=== PATIENT | male | born 1980 | race Caucasian/White ===

== ENCOUNTER 2021-02-21 19:23 | Emergency (ER) | payer BC ==
[~2021-02-21] VITALS: Ht 175.2 cm; Wt 94.4 kg
[2021-02-21] MEDS ORDERED: LIDOCAINE 1% INJ 20 ML 20 ML VIAL INJ STA (19:38)
--- NOTE | 2021-02-21 20:03 | ED Upper Extremity ---
General Chief Complaint: Laceration Stated Complaint: RT INDEX FINGER LAC Nursing Triage Note: Pt ambulatory into ER with complaint of laceration to right hand. 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 Source: patient History of Present Illness Date Seen by Provider: Feb 21, 2021 Time Seen by Provider: 19:29 Initial Comments 40-year-old male presenting with laceration to his right index finger. 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 Discussed the minute break and he got a laceration. He denies any numbness or tingling to the finger. He has normal range of motion. He is right-hand dominant. His last tetanus was 5 to 6 years ago. He denies any other pain or injuries. Onset: just prior to arrival Severity: mild Pain/Injury Location: right 2nd finger Method of Injury: direct blow (punched rear view mirror of truck) Modifying Factors: Worse With Movement Allergies and Home Medications Allergies Coded Allergies: No Known Drug Allergies (Unverified , 02/21/21) Patient Home Medication List Home Medication List Reviewed: Yes Amoxicillin/Potassium Clav (Amox Tr-K Clv 875-125 mg Tab) 1 Each Tablet, 1 EACH PO BID Prescribed by: ALFONSO TURNER on 02/21/212048 Review of Systems Constitutional: No chills, No fever EENTM: no symptoms reported Respiratory: no symptoms reported Cardiovascular: no symptoms reported Gastrointestinal: no symptoms reported Genitourinary: no symptoms reported Musculoskeletal: see HPI Skin: see HPI Psychiatric/Neurological: Denies Numbness, Denies Paresthesia Past Mpeitqm-Tmuimh-Asqimy Hx Patient Social History Tobacco Use?: No Use of E-Cig and/or Vaping dev: No Substance use?: No Alcohol Use?: Yes Alcohol type: Beer, Hard Liquor Alcohol Frequency: Once in a while Pt feels they are or have been: No Immunizations Up To Date Influenza Vaccine Up-to-Date: No; Not Current Physical Exam Vital Signs Vital Signs - First Documented 02/21/21 19:31 Temp 36.7 Pulse 90 Resp 16 B/P (MAP) 128/102 (111) Pulse Ox 98 O2 Delivery Room Air Capillary Refill : Less Than 3 Seconds Height, Weight, BMI Height: '" Weight: lbs. oz. 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, no motor/sensory deficits, alert, normal mood/affect, oriented x 3 Skin: warm/dry Procedures/Interventions Wound Location: Upper Extremities (Right index finger) Wound Length (cm): 3.1 Wound's Depth, Shape: linear, contused tissue, sub Q Wound Explored: clean Anesthesia: 1% Lidocaine Volume Anesthetic (ccs): 6 Suture: Ethlion Suture Size: 4-0 Number of Sutures: 6 Layer Closure?: 1 Sterile Dressing Applied?: Yes Progress After obtaining verbal consent from the patient and clearing his x-ray that there were no foreign bodies or fractures, the patient had 1% plain lidocaine infiltrated for a digital block and laceration anesthetic. He had a total of 6 mL of lidocaine infiltrated for anesthesia. The wound was then scrubbed and cleaned with chlorhexidine scrub soap and sterile water. All the wound was explored there were no foreign bodies. He had continued superficial bleeding. The wound edges were approximated using 4-0 Ethilon with a total of 6 simple interrupted stitches. He tolerated this well without any immediate complication. Counseled on follow-up and return precautions. Stitches out in 10 to 14 days. 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 Progress/Results/Core Measures Results/Orders My Orders Orders - ALFONSO TURNER MD Hand 3 View Right (02/21/21 19:37) Lidocaine 1% Inj 20 Ml (Xylocaine 1% Inj (02/21/21 19:38) Suture Set At Bedside (02/21/21 19:38) Wound Dressing-Ed (02/21/21 19:38) Dipht,Pertuss(Acell),Tet Adult (Boostrix (02/21/21 20:45) Ice: Apply To Affected Area (02/21/21 20:34) Amoxicillin/Clavulanate Tablet (Augmenti (02/21/21 20:35) Medications Given in ED Current Medications Medications Dose Ordered Sig/Claudio Route Start Time Stop Time Status Last Admin Dose Admin Diphtheria/ Tetanus/Acell Pertussis 0.5 ml ONCE ONCE IM 02/21/21 20:45 02/21/21 20:46 DC 02/21/21 20:44 0.5 ML Vital Signs/I&O 02/21/21 02/21/21 19:31 20:55 Temp 36.7 Pulse 90 74 Resp 16 16 B/P (MAP) 128/102 (111) 121/88 Pulse Ox 98 99 O2 Delivery Room Air Room Air Blood Pressure Mean: 111 Progress Progress Note #1: Progress Note Obtain x-ray to evaluate for fracture or foreign body. Verbally consented for repair of laceration wound once the x-ray shows that he is clear. Will order an update of his tetanus booster since it has been over 5 years. Progress Note #2: Progress Note No acute fracture or foreign body seen on x-rays. Patient had tolerated repair of the laceration. Counseled on follow-up and return precautions. 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 Diagnostic Imaging Diagonstic Imaging: Xray Plain Films/CT/US/NM/MRI: hand Comments [facility]. [place], [place] NAME: PORTILLO ALEXANDRA [facility] REC#: [id number] PT STATUS: DEP ER : 1980 PHYSICIAN: ALFONSO TURNER MD ADMIT DATE: 02/21/21/ER FS Draft Date of Exam:02/21/21 HAND 3 VIEW RIGHT Right hand. INDICATION: Punched a mirror. 3 views were obtained. There are no prior studies available for comparison. FINDINGS: There is gauze overlying the proximal phalanx of the 2nd digit. Reportedly the patient has suffered a laceration in this area. There is no fracture identified nor is there any evidence for a radiopaque foreign body. No other fracture or acute bony abnormality is appreciated. IMPRESSION: 1. There is an injury to the 2nd digit but there is no sign of a radiopaque foreign body or of an acute bony abnormality. 2. These results were discussed with Dr. Alfonso Turner. Dictated on workstation # [id number] Dict: 02/21/211948 Trans: 02/21/212100 [id number] Interpreted by: BERNA SAAB MD Electronically signed by: Reviewed: Reviewed by Me, Discussed w/Radiologist Departure Impression Primary Impression: Laceration of index finger of right hand without complication Additional Impression: Contusion of right hand, initial encounter Disposition: HOME, SELF-CARE Condition: Stable Departure-Patient Inst. Decision time for Depature: 20:43 Referrals: LYDIA CARDENAS DO (PCP/Family) Primary Care Physician Patient Instructions: Wound Care ED, Laceration Repair With Stitches ED Add. Discharge Instructions: Keep wound clean and dry for first 24 hours then may wash with soap and water. Do not soak the hand or finger Keep wound covered when it might get dirty Follow up for removal of stitches in 10-14 days with primary provider or here in ED If signs of infection such as pus draining from wound, redness streaking up the hand and arm, or fever over 101 F then be seen sooner than 10 - 14 days so that you can be evaluated and treated for infection. All discharge instructions reviewed with patient and/or family. Voiced understanding. Scripts Amoxicillin/Potassium Clav (Amox Tr-K Clv 875-125 mg Tab) 1 Each Tablet 1 EACH PO BID for finger laceration for 5 Days, #10 TAB 0 Refills Prov: ALFONSO TURNER MD 02/21/21 ALFONSO TURNER MD Feb 21, 2021 20:02
[2021-02-21] MEDS ORDERED: AUGMENTIN 875 MG TAB (AMOXICILLIN/CLAVULANATE) PO STA (20:35)
[2021-02-21] MEDS ORDERED: TETANUS,DIPTH,PERTUSS P/F (BOOSTRIX) 0.5 ML VIAL IM ONE (20:45)
[2021-02-21] MEDS ORDERED: AMOX1TAB12 PO (20:49)
[2021-02-21 20:55] VITALS: BP 121/88
--- NOTE | 2021-02-21 21:02 | Diagnostic Imaging Report ---
Right hand. INDICATION: Punched a mirror. 3 views were obtained. There are no prior studies available for comparison. FINDINGS: There is gauze overlying the proximal phalanx of the 2nd digit. Reportedly the patient has suffered a laceration in this area. There is no fracture identified nor is there any evidence for a radiopaque foreign body. No other fracture or acute bony abnormality is appreciated. IMPRESSION: 1. There is an injury to the 2nd digit but there is no sign of a radiopaque foreign body or of an acute bony abnormality. 2. These results were discussed with Dr. Wilton Taylor. Dictated by: Dictated on workstation # [id number]
== END 2021-02-21 20:53 | disposition home or self-care (01) ==
LOC: EDUNIT# 19:23 → ER FS 19:25
DX: S61.210A Laceration without foreign body of right index finger without damage to nail, initial encounter (principal); S60.221A Contusion of right hand, initial encounter; Z23 Encounter for immunization; W22.8XXA Striking against or struck by other objects, initial encounter
CPT/HCPCS: 12001; 73130; 90715